=== PATIENT | male | born 1965 ===

== ENCOUNTER 2017-05-10 19:04 | Emergency (ER) | payer MEDICAID ==
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
[2017-05-10 19:16] VITALS: BP 151/108; PULSE 103; RESP 18; TEMP 98.1; O2SAT 94
[2017-05-10] MEDS ORDERED: IBUPROFEN 600 MG TAB PO ONE (19:35)
== END 2017-05-10 19:50 | disposition home or self-care (01) ==
DX: S39.013A Strain of muscle, fascia and tendon of pelvis, initial encounter (principal); S30.0XXA Contusion of lower back and pelvis, initial encounter; V13.4XXA Pedal cycle driver injured in collision with car, pick-up truck or van in traffic accident, initial encounter; Y92.410 Unspecified street and highway as the place of occurrence of the external cause; Y99.8 Other external cause status; Y93.55 Activity, bike riding